=== PATIENT | female | born 1995 | race Two or more races ===

== ENCOUNTER 2016-09-14 22:19 | Emergency (ER) | payer SELFPAY ==
[~2016-09-14] VITALS: Ht 165.1 cm; Wt 93.0 kg
[2016-09-14 23:27] LABS: BASO % 0 % (0-3); EOS % 11 % (0-3); HEMATOCRIT 41.1 % (36.0-47.0); HEMOGLOBIN 13.4 g/dL (12.0-15.5); LYMPH # 3.5 x10^3/uL (1.0-4.8); LYMPH % 27 % (24-48); MEAN CORPUSCULAR HEMOGLOBIN 28 pg (25-35); MEAN CORPUSCULAR HGB CONC 33 g/dL (31-37); MEAN CORPUSCULAR VOLUME 86 fL (79-100); MONO % 6 % (0-9); NEUT % 56 % (31-73); PLATELET COUNT 280 x10^3/uL (140-400); RED BLOOD COUNT 4.79 x10^6/uL (3.50-5.40); RED CELL DISTRIBUTION WIDTH 13.1 % (11.5-14.5)
[2016-09-14 23:29] LABS: BILIRUBIN,URINE NEGATIVE (NEG); GLUCOSE,URINE NEGATIVE (NEG); NITRITE,URINE NEGATIVE (NEG); PH,URINE 5.5; PROTEIN,URINE NEGATIVE (NEG-TRACE)
[2016-09-14 23:40] LABS: BACTERIA,URINE FEW /HPF (0-FEW); SQUAMOUS EPITHELIAL CELL,UR MOD /LPF; WBC,URINE OCC /HPF (0-4)
[2016-09-14 23:43] LABS: CALCIUM 8.9 mg/dL (8.5-10.1); CREATININE 0.6 mg/dL (0.6-1.0); GFR 127.5; POTASSIUM 3.2 mmol/L (3.5-5.1)
[2016-09-14 23:48] LABS: ALBUMIN 3.7 g/dL (3.4-5.0); ALBUMIN/GLOBULIN RATIO 0.9 (1.0-1.7); TOTAL BILIRUBIN 0.2 mg/dL (0.2-1.0); TOTAL PROTEIN 7.6 g/dL (6.4-8.2)
[2016-09-15] MEDS ORDERED: POTASSIUM CHLORIDE 20 MEQ/15 ML ORAL LIQUID. PO ONE
[2016-09-15 00:10] VITALS: BP 124/71
[2016-09-15 00:17] LABS: % EOS 10 % (0-5); PLT ESTIMATE ADEQUATE (ADEQUATE)
--- NOTE | 2016-09-15 00:28 | PHYS DOC ---
Past Medical History Past Medical History: No Pertinent History Past Surgical History: No Surgical History Alcohol Use: None Drug Use: None Adult General Chief Complaint Chief Complaint: VAGINAL BLEEDING HPI HPI Patient is a 21 year old female who presents with prolonged menses. Patient reports vaginal bleeding 2 weeks. Denies history of irregular or prolonged menses in the past. Reports mild cramping lower abdominal pain. Reports using 3 pads today. Denies fevers or chills, nausea or vomiting, diarrhea or constipation, dysuria or hematuria, vaginal discharge. Reports she sometimes feels lightheaded. Denies any other abnormal bleeding. Patient speaks Chuukese , accompanied by who is serving as a fluent corporate webmaster. Review of Systems Review of Systems Constitutional: Denies fever or chills Eyes: Denies change in visual acuity HENT: Denies nasal congestion or sore throat Respiratory: Denies cough or shortness of breath Cardiovascular: Denies chest pain or edema GI: Her port's abdominal pain, denies nausea, vomiting, bloody stools or diarrhea : Port's vaginal bleeding Musculoskeletal: Denies back pain or joint pain Integument: Denies rash or skin lesions Neurologic: Denies headache, focal weakness or sensory changes Current Medications Current Medications Current Medications Medications (Trade) Dose Ordered Sig/Michael Start Time Stop Time Status Last Admin Dose Admin Potassium Chloride (KCl Oral Soln) 40 meq 1X ONCE 09/15/16 00:00 09/15/16 00:01 DC 09/15/16 00:27 40 MEQ Allergies Allergies Allergies Coded Allergies Type Severity Reaction Last Updated Verified No Known Drug Allergies 09/14/16 No Physical Exam Physical Exam Constitutional: Obese, no acute distress, non-toxic appearance. HENT: Normocephalic, atraumatic, bilateral external ears normal, oropharynx moist, nose normal. Eyes: conjunctiva normal, no discharge. Neck: supple, no stridor. Cardiovascular: RRR, no murmurs, no edema. Lungs & Thorax: LCTAB, no wheezing, no respiratory distress. Abdomen: soft, nontender, nondistended. No masses or pulsatile masses, no rebound or guarding : normal appearing female external genitalia, normal appearing cervix with closed os, small amount of blood in the vaginal vault, no CMT, right adnexal tenderness is present Skin: Warm, dry, no erythema, no rash. Back: No CVA tenderness. Extremities: No tenderness, no edema. Neurologic: Alert and oriented X 3, no focal deficits noted. Psychologic: Affect normal, judgement normal, mood normal. Current Patient Data Vital Signs Vital Signs Date Time Temp Pulse Resp B/P (MAP) Pulse Ox O2 Delivery O2 Flow Rate FiO2 09/15/16 00:10 69 16 124/71 (88) 100 Room Air 09/14/16 23:10 98.7 98.7 Lab Values Laboratory Tests Test 09/14/16 21:59 09/14/16 22:48 09/14/16 22:57 POC Urine HCG, Qualitative Hcg negative (Negative) Urine Collection Type Unknown Urine Color Yellow Urine Clarity Clear Urine pH 5.5 Urine Specific [place] 1.020 Urine Protein Negative mg/dL (NEG-TRACE) Urine Glucose (UA) Negative mg/dL (NEG) Urine Ketones (Stick) Negative mg/dL (NEG) Urine Blood Large (NEG) Urine Nitrite Negative (NEG) Urine Bilirubin Negative (NEG) Urine Urobilinogen Dipstick 1.0 mg/dL (0.2 mg/dL) Urine Leukocyte Esterase Negative (NEG) Urine RBC 6-10 /HPF (0-2) Urine WBC Occ /HPF (0-4) Urine Squamous Epithelial Cells Mod /LPF Urine Bacteria Few /HPF (0-FEW) Urine Mucus Marked /LPF White Blood Count 13.0 x10^3/uL (4.0-11.0) H Red Blood Count 4.79 x10^6/uL (3.50-5.40) Hemoglobin 13.4 g/dL (12.0-15.5) Hematocrit 41.1 % (36.0-47.0) Mean Corpuscular Volume 86 fL (79-100) Mean Corpuscular Hemoglobin 28 pg (25-35) Mean Corpuscular Hemoglobin Concent 33 g/dL (31-37) Red Cell Distribution Width 13.1 % (11.5-14.5) Platelet Count 280 x10^3/uL (140-400) Neutrophils (%) (Auto) 56 % (31-73) Lymphocytes (%) (Auto) 27 % (24-48) Monocytes (%) (Auto) 6 % (0-9) Eosinophils (%) (Auto) 11 % (0-3) H Basophils (%) (Auto) 0 % (0-3) Neutrophils # (Auto) 7.3 x10^3uL (1.8-7.7) Lymphocytes # (Auto) 3.5 x10^3/uL (1.0-4.8) Monocytes # (Auto) 0.7 x10^3/uL (0.0-1.1) Eosinophils # (Auto) 1.4 x10^3/uL (0.0-0.7) H Basophils # (Auto) 0.0 x10^3/uL (0.0-0.2) Segmented Neutrophils % 50 % (35-66) Band Neutrophils % 2 % (0-9) Lymphocytes % 35 % (24-48) Monocytes % 3 % (0-10) Eosinophils % 10 % (0-5) H Platelet Estimate Adequate (ADEQUATE) Giant Platelets Occ Sodium Level 139 mmol/L (136-145) Potassium Level 3.2 mmol/L (3.5-5.1) L Chloride Level 103 mmol/L (98-107) Carbon Dioxide Level 27 mmol/L (21-32) Anion Gap 9 (6-14) Blood Urea Nitrogen 8 mg/dL (7-20) Creatinine 0.6 mg/dL (0.6-1.0) Estimated GFR (Cockcroft-Gault) 127.5 BUN/Creatinine Ratio 13 (6-20) Glucose Level 108 mg/dL (70-99) H Calcium Level 8.9 mg/dL (8.5-10.1) Total Bilirubin 0.2 mg/dL (0.2-1.0) Aspartate Amino Transferase (AST) 26 U/L (15-37) Alanine Aminotransferase (ALT) 40 U/L (14-59) Alkaline Phosphatase 125 U/L (46-116) H Total Protein 7.6 g/dL (6.4-8.2) Albumin 3.7 g/dL (3.4-5.0) Albumin/Globulin Ratio 0.9 (1.0-1.7) L Laboratory Tests 09/14/16 22:57 Laboratory Tests 09/14/16 22:57 Microbiology 09/14/16 Wet Prep - Final, Complete EKG EKG [] Radiology/Procedures Radiology/Procedures PROCEDURE: PELVIS W/TV Pelvic ultrasound HISTORY: Right adnexal tenderness, vaginal bleeding. TECHNIQUE: Transabdominal and transvaginal transducers with grayscale and duplex Doppler sonography were utilized. FINDINGS: Transabdominal imaging demonstrates anteverted uterus measuring 6.8 x 3.4 x 5.6 cm. Endometrial thickness 8 mm. No pelvic fluid documented. Ovaries not visualized transabdominal. Transvaginal imaging demonstrates anteverted uterus although the majority the uterus is obscured by bowel gas shadowing. Endometrial thickness 14 mm. Shadowing from bowel gas limits visualization of segments of the ovaries, right ovary measured as 1.9 x 2.4 x 1.7 cm, left ovary measures 3.8 x 2.5 x 2.1 cm demonstrates a left ovarian 3.3 centrilobular oblong unilocular anechoic cystic lesion. There is intact bilateral ovarian blood flow with normal waveforms. No pelvic fluid. Small right ovarian follicles are present. IMPRESSION: Left ovarian 3.8 cm unilocular anechoic simple cystic structure typical of a dominant follicle. Otherwise unremarkable exam. Electronically signed by: Priscila Busch MD (09/15/2016 1:09 AM) [facility] DICTATED and SIGNED BY: PRISCILA BUSCH MD DATE: 09/15/16 010[] Course & Med Decision Making Course & Med Decision Making Pertinent Labs and Imaging studies reviewed. (See chart for details) The patient presents with menorrhagia. Vitals are stable here, not tachycardic or hypotensive. Hemoglobin is stable. Minimal bleeding seen on exam. Ultrasound performed due to adnexal tenderness. Recommend follow-up with Dr. Tobias in the gynecology clinic for further management. Okay to take ibuprofen as needed for cramping pain. Return to the emergency department for high fever, severe pain, uncontrolled vomiting, heavy bleeding requiring greater than 1 pad per hour, any otherwise worsening condition. Discharged home in stable condition. [] Dragon Disclaimer Dragon Disclaimer This electronic medical record was generated, in whole or in part, using a voice recognition dictation system. Departure Departure Impression: Primary Impression: Menorrhagia Additional Impression: Pelvic pain Disposition: 01 HOME, SELF-CARE Condition: STABLE Referrals: NO PCP (PCP) MOOKIE TOBIAS Jr, MD Patient Instructions: Menorrhagia, [id number] Additional Instructions: You were seen in the emergency department today for vaginal bleeding. Your vital signs are stable in your blood count is normal. Please follow-up with Dr. Tobias in the gynecology clinic in 2-3 days for further management. Okay to take ibuprofen as needed for cramping pain. Return to the emergency department for high fever, severe pain, uncontrolled vomiting, heavy bleeding requiring greater than 1 pad per hour, any otherwise worsening condition. Problem Qualifiers ALCON BATISTA MD Sep 15, 2016 00:28
--- NOTE | 2016-09-15 01:12 | RAD ---
Pelvic ultrasound HISTORY: Right adnexal tenderness, vaginal bleeding. TECHNIQUE: Transabdominal and transvaginal transducers with grayscale and duplex Doppler sonography were utilized. FINDINGS: Transabdominal imaging demonstrates anteverted uterus measuring 6.8 x 3.4 x 5.6 cm. Endometrial thickness 8 mm. No pelvic fluid documented. Ovaries not visualized transabdominal. Transvaginal imaging demonstrates anteverted uterus although the majority the uterus is obscured by bowel gas shadowing. Endometrial thickness 14 mm. Shadowing from bowel gas limits visualization of segments of the ovaries, right ovary measured as 1.9 x 2.4 x 1.7 cm, left ovary measures 3.8 x 2.5 x 2.1 cm demonstrates a left ovarian 3.3 centrilobular oblong unilocular anechoic cystic lesion. There is intact bilateral ovarian blood flow with normal waveforms. No pelvic fluid. Small right ovarian follicles are present. IMPRESSION: Left ovarian 3.8 cm unilocular anechoic simple cystic structure typical of a dominant follicle. Otherwise unremarkable exam. Electronically signed by: Lan Busch MD (09/15/2016 1:09 AM) [facility]
== END 2016-09-15 01:32 | disposition home or self-care (01) ==
LOC: ER 22:19
DX: N92.0 Excessive and frequent menstruation with regular cycle (principal); R10.2 Pelvic and perineal pain
CPT/HCPCS: 36415; 76830; 76856; 80053; 81001; 81025; 85007; 85027; 87491; 87591; 99285; Q0111

== ENCOUNTER 2016-09-30 08:01 | Emergency (ER) | payer SELFPAY ==
[~2016-09-30] VITALS: Ht 165.1 cm; Wt 93.0 kg
--- NOTE | 2016-09-30 08:17 | PHYS DOC ---
Past Medical History Past Medical History: No Pertinent History Past Surgical History: No Surgical History Alcohol Use: None Drug Use: None Adult General Chief Complaint Chief Complaint: CHEST PAIN HPI HPI Patient is a 21 year old female who presents with chest pain. Patient presents with her who is interpreting for me. Patient developed chest pain that is sharp in nature, is substernal and left chest, worsens with deep inspiration and improves that she ask else. No known trauma or cough, no fevers. She has had symptoms in the past but does not recall what the cause was. She denies any early heart disease in her family, no history of PE or DVT, does not take any control pills. She has no other risk factors for PE, no recent surgeries, no prolonged immobilization. No pain or swelling in her legs reported. Patient has not attempted any symptom controlling medications. LMP was the first of last month. Review of Systems Review of Systems Constitutional: Denies fever or chills [] Eyes: Denies eye pain [] HENT: Denies nasal congestion or sore throat [] Respiratory: Denies cough or shortness of breath [] Cardiovascular: Reports chest pain GI: Denies abdominal pain, nausea, vomiting, or change in stools : Denies dysuria or hematuria [] Musculoskeletal: Denies back pain Integument: Denies rash Neurologic: Denies headache, focal weakness or sensory changes [] Current Medications Current Medications Current Medications Medications (Trade) Dose Ordered Sig/Michael Start Time Stop Time Status Last Admin Dose Admin Ibuprofen (Motrin) 800 mg 1X ONCE 09/30/16 08:30 09/30/16 08:31 DC 09/30/16 08:27 800 MG Morphine Sulfate 4 mg 1X ONCE 09/30/16 09:15 09/30/16 09:19 DC 09/30/16 09:30 4 MG Allergies Allergies Allergies Coded Allergies Type Severity Reaction Last Updated Verified No Known Drug Allergies 09/14/16 No Physical Exam Physical Exam Constitutional: Well developed, well nourished, no acute distress, non-toxic appearance. [] HENT: Normocephalic, atraumatic, bilateral external ears normal, oropharynx moist, no oral exudates, nose normal. [] Eyes: PERRLA, EOMI, conjunctiva normal, no discharge. [] Neck: Normal range of motion, no tenderness, supple, no stridor. [] Cardiovascular:Heart rate regular rhythm, no murmur [] Lungs & Thorax: Bilateral breath sounds clear to auscultation [] Abdomen: Bowel sounds normal, soft, no tenderness, no masses, no pulsatile masses. [] Skin: Warm, dry, no erythema, no rash. [] Back: No tenderness, no CVA tenderness. [] Extremities: No tenderness, no cyanosis, no clubbing, ROM intact, no edema. [] Neurologic: Alert and oriented X 3, normal motor function, normal sensory function, no focal deficits noted. [] Psychologic: Affect normal, judgement normal, mood normal. [] Current Patient Data Vital Signs Vital Signs Date Time Temp Pulse Resp B/P (MAP) Pulse Ox O2 Delivery O2 Flow Rate FiO2 09/30/16 09:46 58 19 108/66 (80) 99 Room Air 09/30/16 08:08 98.0 98.0 Lab Values Laboratory Tests Test 09/30/16 07:22 09/30/16 08:46 09/30/16 08:50 POC Urine HCG, Qualitative Hcg negative (Negative) White Blood Count 8.8 x10^3/uL (4.0-11.0) Red Blood Count 4.80 x10^6/uL (3.50-5.40) Hemoglobin 13.4 g/dL (12.0-15.5) Hematocrit 40.7 % (36.0-47.0) Mean Corpuscular Volume 85 fL (79-100) Mean Corpuscular Hemoglobin 28 pg (25-35) Mean Corpuscular Hemoglobin Concent 33 g/dL (31-37) Red Cell Distribution Width 12.6 % (11.5-14.5) Platelet Count 271 x10^3/uL (140-400) Neutrophils (%) (Auto) 43 % (31-73) Lymphocytes (%) (Auto) 32 % (24-48) Monocytes (%) (Auto) 9 % (0-9) Eosinophils (%) (Auto) 16 % (0-3) H Basophils (%) (Auto) 1 % (0-3) Neutrophils # (Auto) 3.8 x10^3uL (1.8-7.7) Lymphocytes # (Auto) 2.8 x10^3/uL (1.0-4.8) Monocytes # (Auto) 0.8 x10^3/uL (0.0-1.1) Eosinophils # (Auto) 1.4 x10^3/uL (0.0-0.7) H Basophils # (Auto) 0.0 x10^3/uL (0.0-0.2) Segmented Neutrophils % 37 % (35-66) Band Neutrophils % 4 % (0-9) Lymphocytes % 40 % (24-48) Monocytes % 3 % (0-10) Eosinophils % 16 % (0-5) H Platelet Estimate Adequate (ADEQUATE) D-Dimer (Maricruz) 0.38 ug/mlFEU (0.00-0.50) POC Hemoglobin 14.3 g/dL (12-15) POC Hematocrit 42 % (36-40) H POC Sodium 139 mmol/L (135-145) POC Potassium 3.7 mmol/L (3.5-5.0) POC Chloride 102 mmol/L (98-110) POC Total CO2 24 mmol/L (23-32) Anion Gap 18 mmol/L (6-14) H POC Blood Urea Nitrogen 10 mg/dL (8-26) POC Creatinine 0.5 mg/dL (0.5-1.4) Glucose Level 94 mg/dL (70-99) POC Ionized Calcium (Sung) 1.22 mmol/L (1.13-1.32) Laboratory Tests 09/30/16 08:46 Laboratory Tests 09/30/16 08:50 EKG EKG 60 bpm, sinus, normal axis, normal intervals, no ST elevation or depression, nonischemic T waves, interpreted by me [] Radiology/Procedures Radiology/Procedures CXR: Impression: No acute cardiopulmonary process. Course & Med Decision Making Course & Med Decision Making Pertinent Labs and Imaging studies reviewed. (See chart for details) She was given ibuprofen by mouth for her pain as chest x-ray, EKG and lab work obtained. No acute findings on ED workup. Patient states her pain did not improve. She was given IM morphine and a d-dimer added. Morphine resolved her pain, d-dimer negative. Counseled patient on follow-up with primary care physician, resource list given. Ibuprofen prescription and return percussions given. Dragon Disclaimer Dragon Disclaimer This electronic medical record was generated, in whole or in part, using a voice recognition dictation system. Departure Departure Impression: Primary Impression: Chest pain of uncertain etiology Disposition: HOME, SELF-CARE Condition: STABLE Referrals: NO PCP (PCP) Scripts Ibuprofen (IBUPROFEN) 800 Mg Tablet 800 MG PO PRN TID Y for PAIN, #20 TAB take with food or milk to avoid upsetting stomach Prov: SANDHYA ARROYO MD 09/30/16 SANDHYA ARROYO MD Sep 30, 2016 08:17
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
[2016-09-30] MEDS ORDERED: IBUPROFEN 800 MG TABLET. PO ONE (08:30)
[2016-09-30 08:53] LABS: POTASSIUM ISTAT 3.7 mmol/L (3.5-5.0)
[2016-09-30 08:53] LABS: BASO % 1 % (0-3); EOS % 16 % (0-3); HEMATOCRIT 40.7 % (36.0-47.0); HEMOGLOBIN 13.4 g/dL (12.0-15.5); LYMPH # 2.8 x10^3/uL (1.0-4.8); LYMPH % 32 % (24-48); MEAN CORPUSCULAR HEMOGLOBIN 28 pg (25-35); MEAN CORPUSCULAR HGB CONC 33 g/dL (31-37); MEAN CORPUSCULAR VOLUME 85 fL (79-100); MONO % 9 % (0-9); NEUT % 43 % (31-73); PLATELET COUNT 271 x10^3/uL (140-400); RED CELL DISTRIBUTION WIDTH 12.6 % (11.5-14.5); WHITE BLOOD COUNT 8.8 x10^3/uL (4.0-11.0)
--- NOTE | 2016-09-30 08:56 | RAD ---
Chest radiograph 09/30/2016 at 0829 hours Indication: Chest pain with inspiration Comparison: None available Technique: PA and lateral views of the chest are provided. Findings: Cardiomediastinal silhouette is within normal limits. No pleural effusions, pulmonary vascular congestion or pneumothorax. Few scattered calcified granulomas are present. The lungs are clear. Osseous structures are normal. Impression: No acute cardiopulmonary process.
[2016-09-30] MEDS ORDERED: MORPHINE SULFATE 4 MG/ML DISP.SYRIN. IM ONE (09:15)
[2016-09-30 09:46] VITALS: BP 108/66
[2016-09-30 10:16] LABS: % EOS 16 % (0-5); PLT ESTIMATE ADEQUATE (ADEQUATE)
[2016-09-30] MEDS ORDERED: IBUP-1060 PO (10:43)
== END 2016-09-30 10:56 | disposition home or self-care (01) ==
LOC: ER 08:01
DX: R07.2 Precordial pain (principal)
CPT/HCPCS: 36415; 71020; 80047; 81025; 85007; 85025; 85379; 93005; 96372; 99285; J2270

== ENCOUNTER 2017-02-20 11:52 | Emergency (ER) | payer SELFPAY ==
[2017-02-20 12:36] LABS: URINE HCG POC HCG NEGATIVE (Negative)
[2017-02-20 13:38] LABS: INFLUENZA A PATIENT NEGATIVE (NEGATIVE); INFLUENZA B PATIENT POSITIVE (NEGATIVE)
[2017-02-20 13:39] LABS: OBC FLU VALID
[2017-02-20] MEDS: IBUPROFEN 800 MG TABLET. PO (13:54)
== END 2017-02-20 13:55 | disposition home or self-care (01) ==
LOC: ER 11:52
DX: J11.1 Influenza due to unidentified influenza virus with other respiratory manifestations (principal)
CPT/HCPCS: 81025; 87804; 87804-59; 99284

== ENCOUNTER 2017-02-21 13:34 | Emergency (ER) | payer SELFPAY ==
[2017-02-21 13:55] LABS: URINE HCG POC HCG NEGATIVE (Negative)
[2017-02-21 14:14] LABS: ADD MAN DIFF? NO
[2017-02-21 14:21] LABS: BASO # 0.1 x10^3/uL (0.0-0.2); BASO % 1 % (0-3); EOS # 1.4 x10^3/uL (0.0-0.7); EOS % 14 % (0-3); HEMATOCRIT 40.4 % (36.0-47.0); HEMOGLOBIN 13.1 g/dL (12.0-15.5); LYMPH # 2.7 x10^3/uL (1.0-4.8); LYMPH % 28 % (24-48); MEAN CORPUSCULAR HEMOGLOBIN 28 pg (25-35); MEAN CORPUSCULAR HGB CONC 32 g/dL (31-37); MEAN CORPUSCULAR VOLUME 86 fL (79-100); MONO # 0.6 x10^3/uL (0.0-1.1); MONO % 7 % (0-9); NEUT # 4.9 x10^3uL (1.8-7.7); NEUT % 51 % (31-73); PLATELET COUNT 298 x10^3/uL (140-400); RED CELL DISTRIBUTION WIDTH 13.1 % (11.5-14.5); WHITE BLOOD COUNT 9.7 x10^3/uL (4.0-11.0)
[2017-02-21] MEDS: IV NORMAL SALINE 1000ML BAG 1,000 ML IV (14:23)
[2017-02-21 14:26] LABS: BILIRUBIN,URINE NEGATIVE (NEG); CLARITY,URINE CLEAR; COLOR,URINE YELLOW; GLUCOSE,URINE NEGATIVE (NEG); NITRITE,URINE NEGATIVE (NEG); PH,URINE 5.5; PROTEIN,URINE NEGATIVE (NEG-TRACE)
[2017-02-21 14:31] LABS: INR 1.1 (0.8-1.1); PROTHROMBIN TIME PATIENT 13.3 SEC (11.7-14.0)
[2017-02-21 14:34] LABS: BACTERIA,URINE FEW /HPF (0-FEW); D-DIMER 0.38 ug/mlFEU (0.00-0.50); RBC,URINE OCC /HPF (0-2); SQUAMOUS EPITHELIAL CELL,UR MOD /LPF; WBC,URINE 0 /HPF (0-4)
[2017-02-21 14:47] LABS: ANION GAP 11 (6-14); BLOOD UREA NITROGEN 9 mg/dL (7-20); CALCIUM 8.7 mg/dL (8.5-10.1); CARBON DIOXIDE 26 mmol/L (21-32); CHLORIDE 104 mmol/L (98-107); CREATININE 0.6 mg/dL (0.6-1.0); GFR 126.2; GLUCOSE 103 mg/dL (70-99); POTASSIUM 3.7 mmol/L (3.5-5.1); SODIUM 141 mmol/L (136-145)
[2017-02-21 14:52] LABS: ALBUMIN 3.8 g/dL (3.4-5.0); ALK PHOS 128 U/L (46-116); ALT (SGPT) 26 U/L (14-59); AST (SGOT) 19 U/L (15-37); DIRECT BILIRUBIN 0.1 mg/dL (0.0-0.2); LIPASE 152 U/L (73-393); MAGNESIUM 1.8 mg/dL (1.8-2.4); TOTAL BILIRUBIN 0.4 mg/dL (0.2-1.0); TOTAL PROTEIN 7.7 g/dL (6.4-8.2)
[2017-02-21 14:56] LABS: TROPONINI < 0.017 ng/mL (0.000-0.055)
[2017-02-21 15:01] LABS: NT-PRO BNP 10 pg/mL (0-124)
[2017-02-21 15:01] LABS: CREATINE KINASE 74 U/L (26-192)
[2017-02-21 15:03] LABS: CKMB MASS < 0.5 ng/mL (0.0-3.6)
== END 2017-02-21 15:36 | disposition home or self-care (01) ==
LOC: ER 13:34
DX: J11.1 Influenza due to unidentified influenza virus with other respiratory manifestations (principal)
CPT/HCPCS: 36415; 71046; 80048; 80076; 81001; 81025; 82553; 83690; 83735; 83880; 84484; 85025; 85379; 85610; 93005; 96360; 99285-25; J7030

== ENCOUNTER 2017-03-23 23:42 | Emergency (ER) | payer SELFPAY | END 2017-03-24 00:39 | disposition home or self-care (01) | LOC: ER 03-24 00:39 | DX: J20.9 Acute bronchitis, unspecified (principal) | CPT/HCPCS: 99283 ==

== ENCOUNTER 2017-05-11 21:28 | Emergency (ER) | payer SELFPAY | END 2017-05-11 22:36 | disposition home or self-care (01) | LOC: ER 21:28 | DX: R21 Rash and other nonspecific skin eruption (principal) | CPT/HCPCS: 99283 ==

== ENCOUNTER 2017-06-27 01:12 | Emergency (ER) | payer SELFPAY ==
[2017-06-27] MEDS ORDERED: predniSONE 10 MG TABLET PO (02:30)
[2017-06-27] MEDS: ALBUTEROL SULFATE 2.5 MG/3 ML NEBU. NEB (02:30)
[2017-06-27] MEDS: AZITHROMYCIN 250 MG TABLET. PO (02:47)
[2017-06-27] MEDS: predniSONE 20 MG TABLET PO (02:47)
== END 2017-06-27 03:03 | disposition home or self-care (01) ==
LOC: ER 01:12
DX: R06.2 Wheezing (principal); R06.02 Shortness of breath; R06.00 Dyspnea, unspecified; R05 Cough
CPT/HCPCS: 94640; 99283; J7512; J7613; Q0144

== ENCOUNTER 2017-07-23 09:21 | Emergency (ER) | payer SELFPAY ==
[2017-07-23] MEDS: IPRATRPIUM/ALBUTEROL 0.5/2.5MG 3 ML NEBU. NEB (09:59)
[2017-07-23] MEDS: predniSONE 10 MG TABLET PO (10:11)
[2017-07-23] MEDS: ALBUTEROL SULFATE 2.5 MG/3 ML NEBU. NEB (10:55)
== END 2017-07-23 11:13 | disposition home or self-care (01) ==
LOC: ER 09:21
DX: J45.909 Unspecified asthma, uncomplicated (principal)
CPT/HCPCS: 94640; 99284; J7512; J7613; J7620

== ENCOUNTER 2017-11-15 01:34 | Emergency (ER) | payer SELFPAY ==
[~2017-11-15] VITALS: Ht 162.6 cm; Wt 90.7 kg
[~2017-11-15 01:34] MED LIST: AMOX1TAB61 PO; AZIT250T6 PO; CLOT15CR5 TP; IBUP-1060 PO; ONDA4TAB10 SL; PRED50TA PO; PROAIR HFA8.5 GM INH; PROVENTIL HFA6.7 GM IH
[2017-11-15 01:50] VITALS: BP 151/84
[2017-11-15] MEDS ORDERED: PENI500T PO (02:24)
[2017-11-15] MEDS ORDERED: HYDR-963 PO (02:24)
[2017-11-15] MEDS ORDERED: oxyCODONE/APAP 10/325 1 TAB TABLET PO ONE (03:00)
[2017-11-15] MEDS ORDERED: PENICILLIN V K 250 MG TABLET. PO ONE (03:00)
--- NOTE | 2017-11-15 05:50 | PHYS DOC ---
Past Medical History Past Medical History: No Pertinent History Past Surgical History: No Surgical History Alcohol Use: None Drug Use: None Adult General Chief Complaint Chief Complaint: DENTAL PROBLEM HPI HPI Patient is a 22 year old female presents with left upper premolar pain past 2 weeks. Patient with upper Left upper abdominal tenderness. No soft tissue gingival abscess. No other acute symptoms or complaints. Patient is not been evaluated for symptoms by a dentist prior to today's ED visit.[] Review of Systems Review of Systems ROS as per HPI [] All other systems were reviewed and found to be within normal limits, except as documented in this note. Current Medications Current Medications Current Medications Medications (Trade) Dose Ordered Sig/Michael Start Time Stop Time Status Last Admin Dose Admin Oxycodone/ Acetaminophen (Percocet 10/325) 1 tab 1X ONCE 11/15/17 03:00 11/15/17 03:00 DC 11/15/17 02:47 1 TAB Penicillin V Potassium (Veetid) 500 mg 1X ONCE 11/15/17 03:00 11/15/17 03:00 DC 11/15/17 02:47 500 MG Allergies Allergies Allergies Coded Allergies Type Severity Reaction Last Updated Verified No Known Drug Allergies 09/14/16 No c Physical Exam Physical Exam Constitutional: Well developed, well nourished, no acute distress, non-toxic appearance. [] HENT: Normocephalic, atraumatic, bilateral external ears normal, oropharynx moist, left upper pain, nose normal. [] Eyes: PERRLA, EOMI, conjunctiva normal. [] Current Patient Data Vital Signs Vital Signs Date Time Temp Pulse Resp B/P (MAP) Pulse Ox O2 Delivery O2 Flow Rate FiO2 11/15/17 01:50 98.5 83 18 151/84 (106) 99 Room Air 98.5 EKG EKG [] Radiology/Procedures Radiology/Procedures [] Course & Med Decision Making Course & Med Decision Making Pertinent Labs and Imaging studies reviewed. (See chart for details) [No dysphagia, drooling or trismus. Patient recommended follow-up with dentist of choice JOHAN. Return cautions reviewed.] Dragon Disclaimer Dragon Disclaimer This electronic medical record was generated, in whole or in part, using a voice recognition dictation system. Departure Departure Impression: Primary Impression: Pain due to dental caries Disposition: HOME, SELF-CARE Condition: GOOD Patient Instructions: Dental Caries, Dental Pain, Cgot-va-Jlen Scripts Penicillin V Potassium (PENICILLIN V POTASSIUM) 500 Mg Tablet 500 MG PO QID for 10 Days, #40 TAB 0 Refills Prov: AVINASH EDMONDSON DO 11/15/17 Hydrocodone/Apap 10-325 (NORCO 10-325 TABLET) 1 Each Tablet 1 TAB PO Q8HRS PRN for PAIN MDD 6, #10 TAB 0 Refills Prov: AVINASH EDMONDSON DO 11/15/17 AVINASH EDMONDSON DO Nov 15, 2017 05:50
== END 2017-11-15 02:51 | disposition home or self-care (01) ==
LOC: ER 01:34
DX: K02.9 Dental caries, unspecified (principal); R10.12 Left upper quadrant pain
CPT/HCPCS: 99283

== ENCOUNTER 2018-01-02 18:30 | Emergency (ER) | payer SELFPAY ==
[~2018-01-02] VITALS: Ht 162.6 cm; Wt 90.7 kg
[~2018-01-02 18:30] MED LIST changes: +HYDR-3135 PO; +PENI500T PO
[2018-01-02 19:00] VITALS: BP 132/75
[2018-01-02] MEDS ORDERED: BUPIVAC MPF-EPI 0.5%-1:200000 30 ML VIAL. INJ ONE (19:30)
[2018-01-02] MEDS ORDERED: AMOXICILLIN/K CLAV 875/125MG TABLET. PO ONE (19:30)
[2018-01-02] MEDS ORDERED: DEXAMETHASONE 4 MG TABLET PO ONE (19:30)
[2018-01-02] MEDS ORDERED: AMOX1TAB61 PO (19:33)
[2018-01-02] MEDS ORDERED: PRED20TA PO (19:33)
[2018-01-02] MEDS ORDERED: CHLO15MO2 PO (19:33)
--- NOTE | 2018-01-02 19:34 | PHYS DOC ---
Past Medical History Past Medical History: No Pertinent History Past Surgical History: No Surgical History Alcohol Use: None Drug Use: None Adult General Chief Complaint Chief Complaint: DENTAL PROBLEM HPI HPI Patient is a 22 year old [f__sex] who presents with [] Review of Systems Review of Systems Constitutional: Denies fever or chills [] Eyes: Denies change in visual acuity, redness, or eye pain [] HENT: Denies nasal congestion or sore throat [] Respiratory: Denies cough or shortness of breath [] Cardiovascular: No additional information not addressed in HPI [] GI: Denies abdominal pain, nausea, vomiting, bloody stools or diarrhea [] : Denies dysuria or hematuria [] Musculoskeletal: Denies back pain or joint pain [] Integument: Denies rash or skin lesions [] Neurologic: Denies headache, focal weakness or sensory changes [] Endocrine: Denies polyuria or polydipsia [] All other systems were reviewed and found to be within normal limits, except as documented in this note. Allergies Allergies Allergies Coded Allergies Type Severity Reaction Last Updated Verified No Known Drug Allergies 09/14/16 No Physical Exam Physical Exam Constitutional: Well developed, well nourished, no acute distress, non-toxic appearance. [] HENT: Normocephalic, atraumatic, bilateral external ears normal, oropharynx moist, no oral exudates, nose normal. [] Eyes: PERRLA, EOMI, conjunctiva normal, no discharge. [] Neck: Normal range of motion, no tenderness, supple, no stridor. [] Cardiovascular:Heart rate regular rhythm, no murmur [] Lungs & Thorax: Bilateral breath sounds clear to auscultation [] Abdomen: Bowel sounds normal, soft, no tenderness, no masses, no pulsatile masses. [] Skin: Warm, dry, no erythema, no rash. [] Back: No tenderness, no CVA tenderness. [] Extremities: No tenderness, no cyanosis, no clubbing, ROM intact, no edema. [] Neurologic: Alert and oriented X 3, normal motor function, normal sensory function, no focal deficits noted. [] Psychologic: Affect normal, judgement normal, mood normal. [] EKG EKG [] Radiology/Procedures Radiology/Procedures [] Course & Med Decision Making Course & Med Decision Making Pertinent Labs and Imaging studies reviewed. (See chart for details) [] Dragon Disclaimer Dragon Disclaimer This electronic medical record was generated, in whole or in part, using a voice recognition dictation system. Departure Departure Impression: Primary Impression: Dentalgia Additional Impression: Dental caries Condition: STABLE Referrals: NO PCP (PCP) Patient Instructions: Dental Caries Scripts Amoxicillin/Potassium Clav (AUGMENTIN 875-125 TABLET) 1 Each Tablet 1 TAB PO BID, #14 TAB Prov: ALEJANDRO PAULINO DO 01/02/18 Chlorhexidine Gluconate (PERIDEX) 15 Ml Mouthwash 15 ML PO BID, #946 ML Prov: ALEJANDRO PAULINO DO 01/02/18 Prednisone (PREDNISONE) 20 Mg Tablet 2 TAB PO DAILY, #8 TAB Prov: ALEJANDRO PAULINO DO 01/02/18 Problem Qualifiers ALEJANDRO PAULINO DO Jan 02, 2018 19:33
== END 2018-01-02 20:55 | disposition home or self-care (01) ==
LOC: ER 18:30
DX: K02.9 Dental caries, unspecified (principal)
CPT/HCPCS: 96372; 99283; J3490; J8540

== ENCOUNTER 2018-01-20 20:41 | Emergency (ER) | payer SELFPAY ==
[~2018-01-20] VITALS: Ht 160 cm; Wt 86.2 kg
[~2018-01-20 20:41] MED LIST changes: +CHLO15MO2 PO; +PRED20TA PO
[2018-01-20 20:42] VITALS: BP 122/80
[2018-01-20] MEDS ORDERED: HYDROcodone/APAP 5/325MG 1 TAB TABLET PO ONE (22:00)
--- NOTE | 2018-01-20 22:15 | PHYS DOC ---
Past Medical History Past Medical History: No Pertinent History Past Surgical History: No Surgical History Alcohol Use: None Drug Use: None Adult General Chief Complaint Chief Complaint: SKIN RASH/ABSCESS HPI HPI Patient is a 22 year old female who presents with pressure left breast nipple for 3 months. She denies fevers. States her pain is a 10 out of 10. She is no known drug allergies. She has known past history states she takes no medications daily and is not currently breast-feeding. Review of Systems Review of Systems Constitutional: Denies fever or chills [] Eyes: Denies change in visual acuity, redness, or eye pain [] HENT: Denies nasal congestion or sore throat [] Respiratory: Denies cough or shortness of breath [] Cardiovascular: No additional information not addressed in HPI [] GI: Denies abdominal pain, nausea, vomiting, bloody stools or diarrhea [] : Denies dysuria or hematuria [] Musculoskeletal: Denies back pain or joint pain [] Integument: Left nipple excoriation and drainage. Denies rash or skin lesions [] Neurologic: Denies headache, focal weakness or sensory changes [] All other systems were reviewed and found to be within normal limits, except as documented in this note. Current Medications Current Medications Current Medications Medications (Trade) Dose Ordered Sig/Michael Start Time Stop Time Status Last Admin Dose Admin Acetaminophen/ Hydrocodone Bitart (Lortab 5/325) 1 tab 1X ONCE 01/20/18 22:00 01/20/18 22:01 DC 01/20/18 21:48 1 TAB Allergies Allergies Allergies Coded Allergies Type Severity Reaction Last Updated Verified No Known Drug Allergies 09/14/16 No Physical Exam Physical Exam Constitutional: Well developed, well nourished, no acute distress, non-toxic appearance. [] HENT: Normocephalic, atraumatic, bilateral external ears normal, oropharynx moist, no oral exudates, nose normal. [] Eyes: PERRLA, EOMI, conjunctiva normal, no discharge. [] Neck: Normal range of motion, no tenderness, supple, no stridor. [] Cardiovascular:Heart rate regular rhythm, no murmur [] Lungs & Thorax: Bilateral breath sounds clear to auscultation [] Abdomen: Bowel sounds normal, soft, no tenderness, no masses, no pulsatile masses. [] Skin: Warm, dry, Left breast nipple erythema and excoriation with bloody purulent drainage, no rash. [] Back: No tenderness, no CVA tenderness. [] Extremities: No tenderness, no cyanosis, no clubbing, ROM intact, no edema. [] Neurologic: Alert and oriented X 3, normal motor function, normal sensory function, no focal deficits noted. [] Psychologic: Affect normal, judgement normal, mood normal. [] Current Patient Data Vital Signs Vital Signs Date Time Temp Pulse Resp B/P (MAP) Pulse Ox O2 Delivery O2 Flow Rate FiO2 01/20/18 20:42 98.1 88 20 122/80 (94) 98 Room Air 98.1 EKG EKG [] Radiology/Procedures Radiology/Procedures US BREAST Impressions: [facility] [address] [place], [place] [id number] IMAGING REPORT Signed PATIENT: ELIZABETH CALL ACCOUNT: [id number] : 1995 LOCATION: ER AGE: 22 SEX: F EXAM STATUS: REG ER ORD. PHYSICIAN: AMARI BABCOCK APRN REASON: NIPPLE EXCORIATION PROCEDURE: BREAST LEFT Indication: Left nipple excoriation for 3 months. Patient was given steroid cream with no relief. TECHNIQUE: Grayscale and color Doppler images of the left breast COMPARISON: None FINDINGS: The skin is significantly thickened measuring 6 mm. There is an anechoic septated well-circumscribed lesion in the subareolar soft tissue measuring 1.3 x 1.5 x 0.8 cm without internal vascularity. Hyperemia is seen through the cutaneous soft tissue. Diffuse breast soft tissue edema noted. Multiple dilated intramammary ducts are seen. IMPRESSION: 1. Left breast cellulitis. Follow-up ultrasound recommended after medical therapy to ensure resolution as inflammatory type breast cancer can present similarly. 2. Subareolar minimally complex cyst. BI-RADS 3. Probably benign. Electronically signed by: Brennen Dacosta DO (01/20/2018 10:51 PM) [facility] DICTATED and SIGNED BY: BRENNEN DACOSTA DO DATE: 01/20/18 5455 Course & Med Decision Making Course & Med Decision Making Patient is a 22 year old female who presents with pressure left breast nipple for 3 months. She denies fevers. States her pain is a 10 out of 10. She is no known drug allergies. She has known past history states she takes no medications daily and is not currently breast-feeding. Left nipple is excoriated and has bloody purulent discharge. The rest of the breast is not effected is normal color for race. Area is tender with palpation. I did not feeling masses. Afebrile. US of Breast shows 1. Left breast cellulitis. Follow-up ultrasound recommended after medical therapy to ensure resolution as inflammatory type breast cancer can present similarly. 2. Subareolar minimally complex cyst. BI-RADS 3. Probably benign. Patient will be treated with Bactrim and will need to follow up after antibiotic is completed. I will refer her to Gynecology. Danyel Disclaimer Danyel Disclaimer This electronic medical record was generated, in whole or in part, using a voice recognition dictation system. Departure Departure Impression: Primary Impression: Cellulitis of breast Disposition: HOME, SELF-CARE Condition: STABLE Referrals: NO PCP (PCP) RAQUEL ARROYO MD Patient Instructions: Cellulitis Additional Instructions: Follow up with Gynecology after you are done taking your antibiotics. Take medication as prescribed. Scripts Hydrocodone/Apap 5-325 (NORCO 5-325 TABLET) 1 Each Tablet 1 TAB PO PRN Q6HRS PRN for PAIN, #15 TAB 0 Refills Prov: AMARI BABCOCK APRN 01/20/18 Sulfamethoxazole/Trimethoprim (BACTRIM DS TABLET) 1 Each Tablet 1 TAB PO BID, #20 TAB Prov: AMARI BABCOCK APRN 01/20/18 AMARI BABCOCK APRN Jan 20, 2018 22:15
--- NOTE | 2018-01-20 22:55 | RAD ---
Indication: Left nipple excoriation for 3 months. Patient was given steroid cream with no relief. TECHNIQUE: Grayscale and color Doppler images of the left breast COMPARISON: None FINDINGS: The skin is significantly thickened measuring 6 mm. There is an anechoic septated well-circumscribed lesion in the subareolar soft tissue measuring 1.3 x 1.5 x 0.8 cm without internal vascularity. Hyperemia is seen through the cutaneous soft tissue. Diffuse breast soft tissue edema noted. Multiple dilated intramammary ducts are seen. IMPRESSION: 1. Left breast cellulitis. Follow-up ultrasound recommended after medical therapy to ensure resolution as inflammatory type breast cancer can present similarly. 2. Subareolar minimally complex cyst. BI-RADS 3. Probably benign. Electronically signed by: Brennen Dacosta DO (01/20/2018 10:51 PM) [facility]
[2018-01-20] MEDS ORDERED: SULF1TAB24 PO (23:05)
[2018-01-20] MEDS ORDERED: HYDR-3164 PO (23:08)
== END 2018-01-20 23:29 | disposition home or self-care (01) ==
LOC: ER 20:41
DX: S20.112A Abrasion of breast, left breast, initial encounter (principal); N61.0 Mastitis without abscess; X58.XXXA Exposure to other specified factors, initial encounter; Y93.89 Activity, other specified; Y92.89 Other specified places as the place of occurrence of the external cause; Y99.8 Other external cause status
CPT/HCPCS: 76641; 99284

== ENCOUNTER 2018-03-30 10:45 | Emergency (ER) | payer SELFPAY ==
[~2018-03-30] VITALS: Ht 167.6 cm; Wt 90.7 kg
[~2018-03-30 10:45] MED LIST changes: +ALBU2.5V8 IH; +ALBU2.5V8 INH; +HYDR-3164 PO; -PROAIR HFA8.5 GM INH; -PROVENTIL HFA6.7 GM IH; +SULF1TAB24 PO
[2018-03-30 11:07] VITALS: BP 147/87
[2018-03-30] MEDS ORDERED: predniSONE 20 MG TABLET PO ONE (11:45)
[2018-03-30] MEDS ORDERED: IPRATRPIUM/ALBUTEROL 0.5/2.5MG 3 ML NEBU. NEB ONE (11:45)
--- NOTE | 2018-03-30 12:13 | RAD ---
EXAM: Chest, 2 views. HISTORY: Shortness of air. COMPARISON: 02/21/2017 FINDINGS: 2 views of the chest are obtained. There is slight increased parahilar interstitial opacity. There is no consolidation, pleural effusion or pneumothorax. The heart is normal in size. IMPRESSION: Slight increased bilateral perihilar interstitial opacity. This may be due to small airways disease or viral pneumonia. No consolidated infiltrate is seen. Electronically signed by: Claritza Mazariegos MD (03/30/2018 12:10 PM) [facility]
[2018-03-30] MEDS ORDERED: BENZ100C PO (12:30)
[2018-03-30] MEDS ORDERED: VENTOLIN HFA18 GM INH (12:30)
[2018-03-30] MEDS ORDERED: PRED50TA PO (12:30)
--- NOTE | 2018-03-30 12:30 | PHYS DOC ---
Past Medical History Past Medical History: No Pertinent History Past Surgical History: No Surgical History Alcohol Use: None Drug Use: None Adult General Chief Complaint Chief Complaint: SHORTNESS OF BREATH HPI HPI Patient is a 23 year old female with no significant medical history who presents to the ED today complaining of cough and shortness of breath that began yesterday. Patient denies any fever. Denies any previous history of asthma. Denies any nasal congestion. Patient does not know if she has any history of asthma. She is Chukese speaking and interpretation is provided by family Review of Systems Review of Systems Constitutional: Denies fever or chills [] Eyes: Denies change in visual acuity, redness, or eye pain [] HENT: Denies nasal congestion or sore throat [] Respiratory: Reports cough and shortness of breath Cardiovascular: No additional information not addressed in HPI [] GI: Denies abdominal pain, nausea, vomiting, bloody stools or diarrhea [] : Denies dysuria or hematuria [] Musculoskeletal: Denies back pain or joint pain [] Integument: Denies rash or skin lesions [] Neurologic: Denies headache, focal weakness or sensory changes [] All other systems were reviewed and found to be within normal limits, except as documented in this note. Current Medications Current Medications Current Medications Medications (Trade) Dose Ordered Sig/Michael Start Time Stop Time Status Last Admin Dose Admin Albuterol/ Ipratropium (Duoneb) 3 ml 1X ONCE 03/30/18 11:45 03/30/18 11:46 DC 03/30/18 11:51 3 ML Prednisone (Prednisone) 60 mg 1X ONCE 03/30/18 11:45 03/30/18 11:46 DC 03/30/18 11:45 60 MG Allergies Allergies Allergies Coded Allergies Type Severity Reaction Last Updated Verified No Known Drug Allergies 09/14/16 No Physical Exam Physical Exam Constitutional: Well developed, well nourished, no acute distress, non-toxic appearance. [] HENT: Normocephalic, atraumatic, bilateral external ears normal, oropharynx moist, no oral exudates, nose normal. [] Eyes: PERRLA, EOMI, conjunctiva normal, no discharge. [] Neck: Normal range of motion, no tenderness, supple, no stridor. [] Cardiovascular:Heart rate regular rhythm, no murmur [] Lungs & Thorax: Wheezing to bilateral upper anterior and posterior lung bases Abdomen: Bowel sounds normal, soft, no tenderness, no masses, no pulsatile masses. [] Skin: Warm, dry, no erythema, no rash. [] Back: No tenderness, no CVA tenderness. [] Extremities: No tenderness, no cyanosis, no clubbing, ROM intact, no edema. [] Neurologic: Alert and oriented X 3, normal motor function, normal sensory function, no focal deficits noted. [] Psychologic: Affect normal, judgement normal, mood normal. [] Current Patient Data Vital Signs Vital Signs Date Time Temp Pulse Resp B/P (MAP) Pulse Ox O2 Delivery O2 Flow Rate FiO2 03/30/18 11:52 96 Room Air 03/30/18 11:07 98.1 103 28 147/87 (107) 98.1 EKG EKG [] Radiology/Procedures Radiology/Procedures []PROCEDURE: CHEST PA & LATERAL EXAM: Chest, 2 views. HISTORY: Shortness of air. COMPARISON: 02/21/2017 FINDINGS: 2 views of the chest are obtained. There is slight increased parahilar interstitial opacity. There is no consolidation, pleural effusion or pneumothorax. The heart is normal in size. IMPRESSION: Slight increased bilateral perihilar interstitial opacity. This may be due to small airways disease or viral pneumonia. No consolidated infiltrate is seen. Electronically signed by: Claritza Mazariegos MD (03/30/2018 12:10 PM) [facility] DICTATED and SIGNED BY: CLARITZA MAZARIEGOS MD DATE: 03/30/18 1209 Course & Med Decision Making Course & Med Decision Making Pertinent Labs and Imaging studies reviewed. (See chart for details) This is a 23-year-old female patient presenting to the ED today complaining of cough or shortness of breath since yesterday. Patient was given a DuoNeb treatment and prednisone on arrival to the ER. Lungs have cleared up, patient feels better. Chest x-ray interpreted by radiologist slight increased bilateral perihilar interstitial opacity. This may be due to small airways disease or viral pneumonia. No consolidated infiltrate is seen. Patient was discharged with albuterol inhaler, prednisone for 4 more days, Tessalon Perles for her cough. Instructed to follow-up with her own doctor in the next 7 days. Provided return precautions and discharged in stable condition. Dragon Disclaimer Dragon Disclaimer This electronic medical record was generated, in whole or in part, using a voice recognition dictation system. Departure Departure Impression: Primary Impression: Asthma Disposition: 01 HOME, SELF-CARE Condition: STABLE Referrals: NO PCP (PCP) follow up with your doctor in 1 week Patient Instructions: Asthma, Adult, [id number] Additional Instructions: You were evaluated in the emergency room and noted to have asthma symptoms. Take the medication prescribes as ordered . Follow-up with your doctor in 1-2 weeks. Scripts Albuterol Sulfate (VENTOLIN HFA INHALER) 18 Gm Hfa.aer.ad 2 PUFF INH Q4HRS for FOR ASTHMA, #1 INHALER 0 Refills Prov: MIKEY HUERTA APRN 03/30/18 Benzonatate (TESSALON PERLE) 100 Mg Capsule 1 CAP PO TID, #30 CAP Prov: MIKEY HUERTA APRN 03/30/18 Prednisone (PREDNISONE) 50 Mg Tablet 1 TAB PO DAILY, #4 TAB Prov: MIKEY HUERTA APRN 03/30/18 Problem Qualifiers Primary Impression: Asthma Asthma severity: mild Asthma persistence: intermittent Asthma complication type: unspecified Qualified Codes: J45.20 - Mild intermittent asthma, uncomplicated MIKEY HUERTA APRN Mar 30, 2018 12:30
== END 2018-03-30 12:41 | disposition home or self-care (01) ==
LOC: ER 10:45
DX: J45.20 Mild intermittent asthma, uncomplicated (principal)
CPT/HCPCS: 71046; 94640; 99283; J7512; J7620

== ENCOUNTER 2018-06-01 00:25 | Emergency (ER) | payer SELFPAY ==
[~2018-06-01 00:25] MED LIST changes: +BENZ100C PO; +VENTOLIN HFA18 GM INH
[2018-06-01] MEDS ORDERED: AZIT250T PO (02:25)
--- NOTE | 2018-06-01 02:26 | PHYS DOC ---
Past Medical History Past Medical History: No Pertinent History Past Surgical History: No Surgical History Alcohol Use: None Drug Use: None Adult General Chief Complaint Chief Complaint: Congestion HPI HPI Patient is a 23-year-old female who presents with complaint of cough, congestion and shortness of breath with wheezing that started yesterday. Patient states that symptoms are improved right now. Patient has been coughing up some sputum but does not know the color of the sputum. Patient has not had a fever. She states that the shortness of breath has been worsened with exertion. Review of Systems Review of Systems Constitutional: Denies fever or chills [] HENT: Positive congestion[] Respiratory: Positive cough and shortness of breath [] Cardiovascular: No additional information not addressed in HPI [] Integument: Denies rash or skin lesions [] Current Medications Current Medications Current Medications Medications (Trade) Dose Ordered Sig/Michael Start Time Stop Time Status Last Admin Dose Admin Azithromycin (Zithromax) 500 mg 1X ONCE 06/01/18 02:30 06/01/18 02:31 UNV Allergies Allergies Allergies Coded Allergies Type Severity Reaction Last Updated Verified No Known Drug Allergies 09/14/16 No Physical Exam Physical Exam Constitutional: Well developed, well nourished, no acute distress, non-toxic appearance. [] HENT: Normocephalic, atraumatic, bilateral external ears normal, oropharynx moist, no oral exudates, nose normal. [] Cardiovascular:Heart rate regular rhythm, no murmur [] Lungs & Thorax: Bilateral breath sounds clear to auscultation [] Extremities: No tenderness, no cyanosis, no clubbing, ROM intact, no edema. [] EKG EKG [] Radiology/Procedures Radiology/Procedures [] Course & Med Decision Making Course & Med Decision Making Pertinent Labs and Imaging studies reviewed. (See chart for details) [] Dragon Disclaimer Dragon Disclaimer This electronic medical record was generated, in whole or in part, using a voice recognition dictation system. Departure Departure Impression: Primary Impression: Upper respiratory infection Disposition: 01 HOME, SELF-CARE Condition: STABLE Referrals: NO PCP (PCP) Patient Instructions: Upper Respiratory Infection, Adult Scripts Azithromycin (ZITHROMAX) 250 Mg Tablet 1 PKG PO UD, #6 TAB Prov: MOHIT GRESHAM Jr. DO 06/01/18 Problem Qualifiers Primary Impression: Upper respiratory infection URI type: unspecified URI Qualified Codes: J06.9 - Acute upper respiratory infection, unspecified MOHIT GRESHAM Jr. DO Jun 01, 2018 02:26
[2018-06-01] MEDS ORDERED: AZITHROMYCIN 250 MG TABLET. PO ONE (03:00)
== END 2018-06-01 02:41 | disposition home or self-care (01) ==
LOC: ER 00:25
DX: J06.9 Acute upper respiratory infection, unspecified (principal)
CPT/HCPCS: 99283; Q0144

== ENCOUNTER 2018-06-15 08:47 | Emergency (ER) | payer SELFPAY ==
[~2018-06-15] VITALS: Ht 162.6 cm; Wt 100.7 kg
[~2018-06-15 08:47] MED LIST changes: +AZIT250T PO
[2018-06-15 09:02] VITALS: BP 138/82
[2018-06-15] MEDS ORDERED: ALBUTEROL SULFATE 2.5 MG/3 ML NEBU. NEB ONE (09:30)
[2018-06-15] MEDS ORDERED: PRED20TA PO (10:14)
[2018-06-15] MEDS ORDERED: ALBU2.5V8 INH (10:14)
[2018-06-15] MEDS ORDERED: CEPH-264 PO (10:14)
--- NOTE | 2018-06-15 10:15 | PHYS DOC ---
Past Medical History Past Medical History: No Pertinent History Past Surgical History: No Surgical History Alcohol Use: None Drug Use: None Adult General Chief Complaint Chief Complaint: FLU SYMPTOM HPI HPI Patient is a 23 year old F here with family who is translating who is having cough, wheezing, ear pain and sore throat. She denies fevers. Review of Systems Review of Systems Constitutional: Denies fever or chills HEENT: Reports congestion, ear pain and sore throat. Respiratory: Reports cough. Cardiovascular: Denies chest pain GI: Denies abdominal pain, nausea, vomiting, bloody stools or diarrhea : Denies dysuria or hematuria Musculoskeletal: Denies back pain or joint pain Integument: Denies rash or skin lesions Neurologic: Denies headache, focal weakness or sensory changes All other systems were reviewed and found to be within normal limits, except as documented in this note. Current Medications Current Medications Current Medications Medications (Trade) Dose Ordered Sig/Michael Start Time Stop Time Status Last Admin Dose Admin Albuterol Sulfate (Ventolin Neb Soln) 2.5 mg 1X ONCE 06/15/18 09:30 06/15/18 09:31 DC 06/15/18 09:26 2.5 MG Allergies Allergies Allergies Coded Allergies Type Severity Reaction Last Updated Verified No Known Drug Allergies 09/14/16 No Physical Exam Physical Exam Constitutional: Well developed, well nourished, no acute distress, non-toxic appearance. HENT: Normocephalic, atraumatic. Ears mildly erythematous B, oropharynx with post nasal drainage Eyes: PERRLA, EOMI, conjunctiva normal, no discharge. Neck: Normal range of motion, no tenderness, supple, no stridor. Cardiovascular:Heart rate regular rhythm, no murmur Lungs & Thorax: Bilateral breath sounds clear to auscultation. Hard cough noted. Abdomen: Bowel sounds normal, soft, no tenderness, no masses, no pulsatile masses. Skin: Warm, dry, no erythema, no rash. Back: No tenderness, no CVA tenderness. Extremities: No tenderness, no cyanosis, no clubbing, ROM intact, no edema. Neurologic: Alert and oriented X 3, normal motor function, normal sensory function, no focal deficits noted. Psychologic: Affect normal, judgement normal, mood normal. Current Patient Data Vital Signs Vital Signs Date Time Temp Pulse Resp B/P (MAP) Pulse Ox O2 Delivery O2 Flow Rate FiO2 4/30/19 09:27 97 Room Air 06/15/18 09:02 97.7 78 20 138/82 (100) 97.7 EKG EKG [] Radiology/Procedures Radiology/Procedures [] Course & Med Decision Making Course & Med Decision Making Pertinent Labs and Imaging studies reviewed. (See chart for details) Pt with otitis media and bronchitis. Will prescribe keflex, albuterol and prednisone. Pt to rest and push fluids and f/u with PCP. Danyel Disclaimer Danyel Disclaimer This electronic medical record was generated, in whole or in part, using a voice recognition dictation system. Departure Departure Impression: Primary Impression: Acute bronchitis Additional Impressions: Otitis media Pharyngitis Disposition: HOME, SELF-CARE Condition: STABLE Referrals: NO PCP (PCP) Patient Instructions: Acute Bronchitis, Hfhn-[id number], Otitis Media, Adult, [id number] Scripts Albuterol Sulfate (PROAIR HFA INHALER) 8.5 Gm Hfa.aer.ad 1 PUFF INH PRN Q6HRS PRN for SHORTNESS OF BREATH, #1 INHALER 0 Refills Prov: SANDHYA ESTRADA 06/15/18 Prednisone (PREDNISONE) 20 Mg Tablet 1 TAB PO BID, #10 TAB Prov: SANDHAY ESTRADA 06/15/18 Cephalexin (KEFLEX) 500 Mg Capsule 1 CAP PO TID, #30 CAP Prov: SANDHYA ESTRADA 06/15/18 Problem Qualifiers SANDHYA ESTRADA Jun 15, 2018 10:14
== END 2018-06-15 10:24 | disposition home or self-care (01) ==
LOC: ER 08:47
DX: J20.9 Acute bronchitis, unspecified (principal); J02.9 Acute pharyngitis, unspecified; H66.93 Otitis media, unspecified, bilateral
CPT/HCPCS: 94640; 99283; J7613

== ENCOUNTER 2018-07-30 11:15 | Emergency (ER) | payer SELFPAY ==
[~2018-07-30] VITALS: Ht 165.1 cm; Wt 100.7 kg
[~2018-07-30 11:15] MED LIST changes: +CEPH-264 PO
[2018-07-30 12:07] LABS: BILIRUBIN,URINE NEGATIVE (NEG); CLARITY,URINE CLEAR; COLOR,URINE YELLOW; NITRITE,URINE NEGATIVE (NEG); PROTEIN,URINE NEGATIVE (NEG-TRACE)
[2018-07-30 12:12] LABS: U PREG PATIENT NEGATIVE (NEG)
[2018-07-30] MEDS ORDERED: IBUPROFEN 400 MG TABLET. PO ONE (12:15)
[2018-07-30 12:18] LABS: SQUAMOUS EPITHELIAL CELL,UR MANY /LPF; WBC,URINE OCC /HPF (0-4)
[2018-07-30 12:19] LABS: BACTERIA,URINE MODERATE /HPF (0-FEW)
[2018-07-30] MEDS ORDERED: IBUP-1060 PO (12:26)
[2018-07-30] MEDS ORDERED: PENI500T PO (12:26)
--- NOTE | 2018-07-30 12:26 | PHYS DOC ---
Past Medical History Past Medical History: No Pertinent History Past Surgical History: No Surgical History Alcohol Use: None Drug Use: None Adult General Chief Complaint Chief Complaint: HEADACHE HPI HPI Patient is a 23 year old female who presents with complaining of headache. Patient does not talk Telugu and her translating for her. Patient complaining of sore throat, nasal congestion, headache and feeling hot and cold for the last 3 days and rated her pain 10 over 10. Patient denies sick contacts, , vomiting, neck pain. Patient denies taking any tmwl-wxe-khbxhiy or prescribed medication at home. Review of Systems Review of Systems Constitutional: Reports subjective fever and chills Eyes: Denies change in visual acuity, redness, or eye pain [] HENT: Reports nasal congestion and sore throat Respiratory: Denies cough or shortness of breath [] Cardiovascular: No additional information not addressed in HPI [] GI: Denies abdominal pain, nausea, vomiting, bloody stools or diarrhea [] : Denies dysuria or hematuria [] Musculoskeletal: Denies back pain or joint pain [] Integument: Denies rash or skin lesions [] Neurologic: Reports headache, denies focal weakness or sensory changes [] Endocrine: Denies polyuria or polydipsia [] All other systems were reviewed and found to be within normal limits, except as documented in this note. Current Medications Current Medications Current Medications Medications (Trade) Dose Ordered Sig/Michael Start Time Stop Time Status Last Admin Dose Admin Ibuprofen (Motrin) 800 mg 1X ONCE 07/30/18 12:15 07/30/18 12:16 DC 07/30/18 12:19 800 MG Allergies Allergies Allergies Coded Allergies Type Severity Reaction Last Updated Verified No Known Drug Allergies 09/14/16 No Physical Exam Physical Exam Constitutional: Well developed, well nourished, mild distress, non-toxic appearance. [] HENT: Normocephalic, atraumatic, bilateral external ears normal, oropharynx moist, pharyngeal erythema and tonsillar edema with exudates, nose normal. [] Eyes: PERRLA, EOMI, conjunctiva normal, no discharge. [] Neck: Normal range of motion, no tenderness, supple, no stridor, no meningeal sign. [] Cardiovascular:Heart rate regular rhythm, no murmur [] Lungs & Thorax: Bilateral breath sounds clear to auscultation [] Abdomen: Bowel sounds normal, soft, no tenderness, no masses, no pulsatile masses. [] Skin: Warm, dry, no erythema, no rash. [] Back: No tenderness, no CVA tenderness. [] Extremities: No tenderness, no cyanosis, no clubbing, ROM intact, no edema. [] Neurologic: Alert and oriented X 3, normal motor function, normal sensory func tion, no focal deficits noted. [] Psychologic: Affect normal, judgement normal, mood normal. [] Current Patient Data Vital Signs Vital Signs Date Time Temp Pulse Resp B/P (MAP) Pulse Ox O2 Delivery O2 Flow Rate FiO2 07/30/18 12:29 70 99 07/30/18 11:30 97.8 18 132/73 (92) Room Air 97.8 Lab Values Laboratory Tests Test 07/30/18 11:22 07/30/18 11:38 Urine Collection Type Unknown Urine Color Yellow Urine Clarity Clear Urine pH 6.0 Urine Specific Gilbert 1.015 Urine Protein Negative mg/dL (NEG-TRACE) Urine Glucose (UA) Negative mg/dL (NEG) Urine Ketones (Stick) Negative mg/dL (NEG) Urine Blood Large (NEG) Urine Nitrite Negative (NEG) Urine Bilirubin Negative (NEG) Urine Urobilinogen Dipstick 1.0 mg/dL (0.2 mg/dL) Urine Leukocyte Esterase Negative (NEG) Urine RBC 1-2 /HPF (0-2) Urine WBC Occ /HPF (0-4) Urine Squamous Epithelial Cells Many /LPF Urine Bacteria Moderate /HPF (0-FEW) Urine Mucus Marked /LPF Urine Test Negative (NEG) Group A Streptococcus Rapid Positive (NEGATIVE) EKG EKG [] Radiology/Procedures Radiology/Procedures [] Course & Med Decision Making Course & Med Decision Making Pertinent Labs reviewed. (See chart for details) Evaluation of patient in ER showed 23-year-old female patient with sore throat and headache and not feeling good with positive strep throat test. Patient treated with ibuprofen in ER and felt better and did not want to have Bicillin. Prescription for 10 days penicillin was given. Dragon Disclaimer Dragon Disclaimer This electronic medical record was generated, in whole or in part, using a voice recognition dictation system. Departure Departure Impression: Primary Impression: Acute staphylococcal pharyngitis Additional Impression: Headache Disposition: HOME, SELF-CARE (1224) Condition: STABLE Referrals: NO PCP (PCP) Patient Instructions: Strep Throat, Group A Streptococcus Additional Instructions: Drink plenty of liquids Follow-up with your primary care physician in 3-5 days Return to ER if not getting better Scripts Penicillin V Potassium (PENICILLIN V POTASSIUM) 500 Mg Tablet 2 TAB PO Q12HR, #40 TAB Prov: BOZENA ROGERS MD 07/30/18 Ibuprofen (IBUPROFEN) 800 Mg Tablet 800 MG PO PRN Q8HRS PRN for INFLAMMATION, #20 TAB Prov: BOZENA ROGERS MD 07/30/18 Problem Qualifiers Additional Impression: Headache Headache type: unspecified Headache chronicity pattern: unspecified pattern Intractability: not intractable Qualified Codes: R51 - Headache BOZENA ROGERS MD Jul 30, 2018 12:26
[2018-07-30 12:29] VITALS: BP 118/66
== END 2018-07-30 12:36 | disposition home or self-care (01) ==
LOC: ER 11:15
DX: J02.8 Acute pharyngitis due to other specified organisms (principal); B95.8 Unspecified staphylococcus as the cause of diseases classified elsewhere; R51 Headache
CPT/HCPCS: 81001; 81025; 87086; 87880; 99284

== ENCOUNTER 2018-12-14 19:46 | Emergency (ER) | payer SELFPAY ==
[~2018-12-14] VITALS: Ht 165.1 cm; Wt 97.5 kg
[2018-12-14 20:10] VITALS: BP 146/61
[2018-12-14] MEDS ORDERED: IPRATRPIUM/ALBUTEROL 0.5/2.5MG 3 ML NEBU. NEB ONE (20:30)
[2018-12-14] MEDS ORDERED: CETI10TA16 PO (21:32)
[2018-12-14] MEDS ORDERED: BENZ100C PO (21:32)
[2018-12-14] MEDS ORDERED: VENTOLIN HFA18 GM INH (21:32)
--- NOTE | 2018-12-14 21:32 | PHYS DOC ---
Past Medical History Past Medical History: No Pertinent History Past Surgical History: No Surgical History Alcohol Use: None Drug Use: None Adult General Chief Complaint Chief Complaint: COUGH HPI HPI Patient is a 23 year old female that presents with cough, runny nose, congestion has been ongoing for 2 days. The patient states that she is not running fevers at home. The patient denies any pain. The patient denies that she is a smoker. Review of Systems Review of Systems Constitutional: Denies fever or chills [] Eyes: Denies change in visual acuity, redness, or eye pain [] HENT: Reports runny nose and congestion. Respiratory: Reports cough and shortness of breath [] Cardiovascular: No additional information not addressed in HPI [] GI: Denies abdominal pain, nausea, vomiting, bloody stools or diarrhea [] : Denies dysuria or hematuria [] Musculoskeletal: Denies back pain or joint pain [] Integument: Denies rash or skin lesions [] Neurologic: Denies headache, focal weakness or sensory changes [] Endocrine: Denies polyuria or polydipsia [] Complete systems were reviewed and found to be within normal limits, except as documented in this note. Current Medications Current Medications Current Medications Medications (Trade) Dose Ordered Sig/Michael Start Time Stop Time Status Last Admin Dose Admin Albuterol/ Ipratropium (Duoneb) 3 ml 1X ONCE 12/14/18 20:30 12/14/18 20:31 DC 12/14/18 20:33 3 ML Allergies Allergies Allergies Coded Allergies Type Severity Reaction Last Updated Verified No Known Drug Allergies 09/14/16 No Physical Exam Physical Exam Constitutional: Well developed, well nourished, no acute distress, non-toxic appearance. [] HENT: Normocephalic, atraumatic, bilateral external ears normal, oropharynx moist, no oral exudates, nose normal. [] Eyes: PERRLA, EOMI, conjunctiva normal, no discharge. [] Neck: Normal range of motion, no tenderness, supple, no stridor. [] Cardiovascular:Heart rate regular rhythm, no murmur [] Lungs & Thorax: Bilateral breath sounds with scattered wheezing. Abdomen: Bowel sounds normal, soft, no tenderness, no masses, no pulsatile masses. [] Skin: Warm, dry, no erythema, no rash. [] Back: No tenderness, no CVA tenderness. [] Extremities: No tenderness, no cyanosis, no clubbing, ROM intact, no edema. [] Neurologic: Alert and oriented X 3, normal motor function, normal sensory function, no focal deficits noted. [] Psychologic: Affect normal, judgement normal, mood normal. [] Current Patient Data Vital Signs Vital Signs Date Time Temp Pulse Resp B/P (MAP) Pulse Ox O2 Delivery O2 Flow Rate FiO2 12/14/18 20:10 98.6 104 17 146/61 (89) 98 Room Air 98.6 Lab Values Laboratory Tests Test 12/14/18 20:11 POC Urine HCG, Qualitative Hcg negative (Negative) EKG EKG [] Radiology/Procedures Radiology/Procedures [] Course & Med Decision Making Course & Med Decision Making Pertinent Labs and Imaging studies reviewed. (See chart for details) Will give breathing treatment, Decadron, and then will put on Zyrtec and Tessalon Perles. Appears to be having an upper respiratory infection that caused an Asthma exacerbation. Will d/c home. Discussed return precautions if she gets shortness of breath and unable to breath. Patient states she is feeling better after breathing treatment. Lungs are clear after treatment. Dragon Disclaimer Dragon Disclaimer This electronic medical record was generated, in whole or in part, using a voice recognition dictation system. Departure Departure Impression: Primary Impression: Upper respiratory infection, acute Additional Impression: Asthma exacerbation, mild Disposition: 01 HOME, SELF-CARE Condition: STABLE Referrals: NO PCP (PCP) Patient Instructions: Asthma Attacks, Prevention, Asthma, Adult Additional Instructions: Thank you for visiting [facility]. We appreciate you trusting us with your care. If any additional problems come up don't hesitate to return to visit us. Please follow up with your primary care provider so they can plan additional care if needed and know about the problem that you had. If symptoms worsen come back to the Emergency Department. Any concerning symptoms that start such as chest pain, shortness of air, weakness or numbness on one side of the body, running high fevers or any other concerning symptoms return to the ER. Please fill your medications at any pharmacy and follow the prescription instructions. Scripts Benzonatate (TESSALON PERLE) 100 Mg Capsule 1 CAP PO TID PRN for COUGH, #21 CAP Prov: ALEJANDRO ALLEN APRN 10/29/19 Cetirizine Hcl (CETIRIZINE HCL) 10 Mg Tablet 1 TAB PO DAILY, #30 TAB 0 Refills Prov: ALEJANDRO ALLEN APRN 12/14/18 Albuterol Sulfate (VENTOLIN HFA INHALER) 18 Gm Hfa.aer.ad 2 PUFF INH Q4HRS for FOR ASTHMA, #1 INHALER 0 Refills Prov: ALEJANDRO ALLEN APRN 12/14/18 Problem Qualifiers ALEJANDRO ALLEN APRN Dec 14, 2018 21:32
[2018-12-14] MEDS ORDERED: DEXAMETHASONE 4 MG TABLET PO ONE (22:00)
== END 2018-12-14 21:55 | disposition home or self-care (01) ==
LOC: ER 19:46
DX: J45.21 Mild intermittent asthma with (acute) exacerbation (principal)
CPT/HCPCS: 81025; 94640; 99283; J7620; J8540

== ENCOUNTER 2021-05-02 07:00 | Emergency (ER) | payer SELFPAY ==
[~2021-05-02] VITALS: Ht 167.6 cm; Wt 108.0 kg
[~2021-05-02 07:00] MED LIST changes: -ALBU2.5V8 IH; +CETI10TA16 PO; +PROVENTIL HFA6.7 GM IH
--- NOTE | 2021-05-02 07:28 | ED.ADGEN ---
Past Medical History Past Medical History: No Pertinent History Past Surgical History: No Surgical History Smoking Status: Never Smoker Alcohol Use: None Drug Use: None General Adult EDM: Chief Complaint: COUGH HPI: HPI: Patient is a 26 year old female coming in for cough, shortness of breath, and wheezing since last night. Patient states she has a history of asthma does not take daily medications. Last asthma exacerbation about 1 year ago. Denies any fevers. Had one episode of emesis yesterday. No diarrhea. Review of Systems: Review of Systems: All other systems within normal limits except for as noted in the HPI Current Medications: Current Medications Medications (Trade) Dose Ordered Sig/Michael Start Time Stop Time Status Last Admin Dose Admin Albuterol/ Ipratropium (Duoneb) 3 ml 1X ONCE 05/02/21 07:30 05/02/21 07:31 DC Prednisone (Prednisone) 60 mg 1X ONCE 05/02/21 07:30 05/02/21 07:31 DC 05/02/21 08:08 60 MG Allergies: Allergies: Allergies Coded Allergies Type Severity Reaction Last Updated Verified No Known Drug Allergies 05/02/21 No Physical Exam: PE: Constitutional: Well developed, well nourished, no acute distress, non-toxic appearance. [] HENT: Normocephalic, atraumatic, bilateral external ears normal, nose normal. [] Eyes: PERRLA, conjunctiva normal, no discharge. [] Neck: No rigidity, supple, no stridor. [] Cardiovascular: Regular rate and rhythm, brisk cap refill [] Lungs & Thorax: Non labored symmetric respirations, no tachypnea or respiratory distress. Bilateral expiratory wheezes [] Abdomen: Soft, nondistended. Skin: Warm, dry, no erythema, no rash. [] Back: Unremarkable Extremities: No deformities, range of motion grossly intact, no lower extremity edema [] Neurologic: Alert and oriented X 3, no focal deficits noted. [] Psychologic: Affect normal, judgement normal, mood normal. [] Current Patient Data: Labs: Laboratory Tests Test 05/02/21 07:29 05/02/21 07:42 Urine Collection Type Unknown Urine Color Yellow Urine Clarity Hazy Urine pH 5.5 (<5.0-8.0) Urine Specific [place] 1.030 (1.000-1.030) Urine Protein 100 mg/dL (NEG-TRACE) Urine Glucose (UA) Negative mg/dL (NEG) Urine Ketones (Stick) Negative mg/dL (NEG) Urine Blood Moderate (NEG) Urine Nitrite Negative (NEG) Urine Bilirubin Negative (NEG) Urine Urobilinogen Dipstick 0.2 mg/dL (0.2 mg/dL) Urine Leukocyte Esterase Negative (NEG) Urine RBC 1-2 /HPF (0-2) Urine WBC Occ /HPF (0-4) Urine Squamous Epithelial Cells Many /LPF Urine Bacteria Many /HPF (0-FEW) Urine Mucus Mod /LPF Urine Test Negative (NEG) Influenza Type A Antigen Negative (NEGATIVE) Influenza Type B Antigen Negative (NEGATIVE) SARS-CoV-2 Antigen (Rapid) Negative (NEGATIVE) Vital Signs: Vital Signs Date Time Temp Pulse Resp B/P (MAP) Pulse Ox O2 Delivery O2 Flow Rate FiO2 05/02/21 07:09 97.1 104 17 133/80 (97) 97 Room Air 97.1 EKG: EKG: [] Heart Score: C/O Chest Pain: No Risk Factors: Risk Factors: DM, Current or recent (<one month) smoker, HTN, HLP, family history of CAD, obesity. Risk Scores: Score 0 - 3: 2.5% MACE over next 6 weeks - Discharge Home Score 4 - 6: 20.3% MACE over next 6 weeks - Admit for Clinical Observation Score 7 - 10: 72.7% MACE over next 6 weeks - Early Invasive Strategies Radiology/Procedures: Radiology/Procedures: [facility] [address] [place] [address] IMAGING REPORT Signed PATIENT: ELIZABETH CALL ACCOUNT: [id number] : 1995 LOCATION: ER AGE: 26 SEX: F EXAM STATUS: REG ER ORD. PHYSICIAN: LAMIN CORTES MD REASON: cough PROCEDURE: CHEST PA & LATERAL EXAM: Chest, 2 views. HISTORY: Cough. COMPARISON: 03/30/2018 FINDINGS: 2 views of the chest are obtained. There is slight increased opacification of the lower lungs likely due to asymmetric overlying soft tissues. There is no consolidation, pleural effusion or pneumothorax. The heart is normal in size. IMPRESSION: No acute pulmonary finding. Electronically signed by: Claritza Mazariegos MD (05/02/2021 8:29 AM) [id number] DICTATED and SIGNED BY: CLARITZA MAZARIEGOS MD DATE: 05/02/21826 [] Course & Med Decision Making: Course & Med Decision Making Pertinent Labs and Imaging studies reviewed. (See chart for details) [] Dragon Disclaimer: Dragon Disclaimer: This electronic medical record was generated, in whole or in part, using a voice recognition dictation system. Departure Departure Impression: Primary Impression: Asthma exacerbation, mild Disposition: HOME / SELF CARE / HOMELESS Condition: IMPROVED Referrals: NO PCP (PCP) Patient Instructions: Asthma Prevention-Brief Scripts Albuterol Sulfate (PROAIR HFA INHALER) 8.5 Gm Hfa.aer.ad 2 PUFF IH PRN Q4-6HRS PRN for wheezing for 21 Days, #1 INHALER 0 Refills Prov: LAMIN CORTES MD 05/02/21 Prednisone (PREDNISONE) 50 Mg Tablet 1 TAB PO DAILY for steroid for 4 Days, #4 TAB Prov: LAMIN CORTES MD 05/02/21 LAMIN CORTES MD May 02, 2021 07:27
[2021-05-02] MEDS ORDERED: predniSONE 20 MG TABLET PO ONE (07:30)
[2021-05-02] MEDS ORDERED: IPRATRPIUM/ALBUTEROL 0.5/2.5MG 3 ML NEBU. NEB ONE ×2 (07:30)
[2021-05-02 08:00] LABS: BILIRUBIN,URINE NEGATIVE (NEG); CLARITY,URINE HAZY; COLOR,URINE YELLOW; NITRITE,URINE NEGATIVE (NEG); PH,URINE 5.5 (<5.0-8.0); PROTEIN,URINE 100 mg/dL (NEG-TRACE); UROBILINOGEN,URINE 0.2 mg/dL (0.2 mg/dL)
[2021-05-02 08:04] LABS: BACTERIA,URINE MANY /HPF (0-FEW); WBC,URINE OCC /HPF (0-4)
[2021-05-02 08:05] LABS: U PREG PATIENT NEGATIVE (NEG)
[2021-05-02 08:10] LABS: INFLUENZA A PATIENT NEGATIVE (NEGATIVE); INFLUENZA B PATIENT NEGATIVE (NEGATIVE)
--- NOTE | 2021-05-02 08:32 | RAD ---
EXAM: Chest, 2 views. HISTORY: Cough. COMPARISON: 03/30/2018 FINDINGS: 2 views of the chest are obtained. There is slight increased opacification of the lower anastasia gs likely due to asymmetric overlying soft tissues. There is no consolidation, pleural effusion or pn eumothorax. The heart is normal in size. IMPRESSION: No acute pulmonary finding. Electronically signed by: Claritza Mazariegos MD (05/02/2021 8:29 AM) [id number]
[2021-05-02] MEDS ORDERED: PRED50TA PO (08:58)
[2021-05-02] MEDS ORDERED: ALBU2.5V8 IH (08:58)
[2021-05-02 09:17] VITALS: BP 127/67
== END 2021-05-02 09:18 | disposition home or self-care (01) ==
LOC: ER 07:00
DX: J45.901 Unspecified asthma with (acute) exacerbation (principal); Z20.822 Contact with and (suspected) exposure to COVID-19
CPT/HCPCS: 71046; 81001; 81025; 87086; 87428; 94640; 99284; C9803; J7512; U0003

== ENCOUNTER 2021-06-11 02:44 | Emergency (ER) | payer SELFPAY ==
[~2021-06-11] VITALS: Ht 165.1 cm; Wt 106.9 kg
[~2021-06-11 02:44] MED LIST changes: +ALBU2.5V8 IH
--- NOTE | 2021-06-11 03:40 | PHYS DOC ---
Past Medical History Past Medical History: No Pertinent History Past Surgical History: No Surgical History Smoking Status: Never Smoker Alcohol Use: None Drug Use: None General Adult EDM: Chief Complaint: SHORTNESS OF BREATH HPI: HPI: Patient is a 26 year old female presents with shortness of breath that started last night. Patient states that she has been having wheezing and dry cough but no sputum production. Patient has the similar episodes every few months. Patient was told that she has asthma but has not followed up does not have a primary care physician does not have an inhaler at home. Patient denies any fevers or chills. Review of Systems: Review of Systems: Constitutional: Denies fever or chills. [] Eyes: Denies change in visual acuity. [] HENT: Denies nasal congestion or sore throat. [] Respiratory: Dry cough and shortness of breath. Cardiovascular: Denies chest pain or edema. [] GI: Denies abdominal pain, nausea, vomiting, bloody stools or diarrhea. [] : Denies dysuria. [] Musculoskeletal: Denies back pain or joint pain. [] Integument: Denies rash. [] Neurologic: Denies headache, focal weakness or sensory changes. [] Endocrine: Denies polyuria or polydipsia. [] Lymphatic: Denies swollen glands. [] Psychiatric: Denies depression or anxiety. [] Heart Score: C/O Chest Pain: No Risk Factors: Risk Factors: DM, Current or recent (<one month) smoker, HTN, HLP, family history of CAD, obesity. Risk Scores: Score 0 - 3: 2.5% MACE over next 6 weeks - Discharge Home Score 4 - 6: 20.3% MACE over next 6 weeks - Admit for Clinical Observation Score 7 - 10: 72.7% MACE over next 6 weeks - Early Invasive Strategies Current Medications: Current Medications Medications (Trade) Dose Ordered Sig/Michael Start Time Stop Time Status Last Admin Dose Admin Albuterol/ Ipratropium (Duoneb) 3 ml 1X ONCE 06/11/21 04:00 06/11/21 04:01 Dexamethasone Sodium Phosphate (Decadron) 10 mg 1X ONCE 06/11/21 04:00 06/11/21 04:01 Allergies: Allergies: Allergies Coded Allergies Type Severity Reaction Last Updated Verified No Known Drug Allergies 05/02/21 No Physical Exam: PE: Constitutional: Well developed, well nourished, no acute distress, non-toxic appearance. [] HENT: Normocephalic, atraumatic, bilateral external ears normal, oropharynx moist, no oral exudates, nose normal. [] Eyes: PERRLA, EOMI, conjunctiva normal, no discharge. [] Neck: Normal range of motion, no tenderness, supple, no stridor. [] Cardiovascular:Heart rate regular rhythm, no murmur [] Lungs & Thorax: Shallow respirations diffuse wheezing heard throughout. Abdomen: Bowel sounds normal, soft, no tenderness, no masses, no pulsatile masses. [] Skin: Warm, dry, no erythema, no rash. [] Back: No tenderness, no CVA tenderness. [] Extremities: No tenderness, no cyanosis, no clubbing, ROM intact, no edema. [] Neurologic: Alert and oriented X 3, normal motor function, normal sensory function, no focal deficits noted. [] Psychologic: Affect normal, judgement normal, mood normal. [] Current Patient Data: Vital Signs: Vital Signs Date Time Temp Pulse Resp B/P (MAP) Pulse Ox O2 Delivery O2 Flow Rate FiO2 06/11/21 03:36 98.8 78 16 117/72 (87) 98 Room Air 98.8 EKG: EKG: [] Radiology/Procedures: Radiology/Procedures: []Study: XR CHEST 1V Indication: Shortness of breath. Comparison: 05/02/2021 Findings: Unchanged cardiomediastinal silhouette considering lower lung volumes from the comparison. Symmetric jacky. No confluent airspace infiltrate, pleural effusion or pneumothorax. Impression: No acute radiographic abnormality of the chest. Course & Med Decision Making: Course & Med Decision Making Pertinent Labs and Imaging studies reviewed. (See chart for details) [] Patient states that shortness of breath is improved. I asked the patient if the patient has ever filled a prescription for the albuterol and states that he has never filled the prescription due to cost. Patient states he has no intention of filling or following up. Patient comes to the ER for management of the patient's condition. I explained to the patient that her respiratory condition is chronic and if not managed correctly patient can end up with permanent disability or even . Danyel Disclaimer: Danyel Disclaimer: This electronic medical record was generated, in whole or in part, using a voice recognition dictation system. Departure Departure Impression: Primary Impression: Asthma exacerbation, mild Disposition: 01 HOME / SELF CARE / HOMELESS Condition: IMPROVED Referrals: NO PCP (PCP) EDENILSON TOURE MD Patient Instructions: Asthma, Acute Bronchospasm Additional Instructions: Please follow-up with a hand spring former in the outpatient setting for definitive treatment and maintenance of your chronic disease. Failure to do so will result in poor outcomes. KELLEY AGUILAR DO Jun 11, 2021 03:40
[2021-06-11] MEDS ORDERED: DEXAMETHASONE SOD PHOS 20 MG/5 ML VIAL. IV ONE (04:00)
[2021-06-11] MEDS ORDERED: IPRATRPIUM/ALBUTEROL 0.5/2.5MG 3 ML NEBU. NEB ONE ×3 (04:00→05:15)
--- NOTE | 2021-06-11 04:17 | RAD ---
Study: XR CHEST 1V Indication: Shortness of breath. Comparison: 05/02/2021 Findings: Unchanged cardiomediastinal silhouette considering lower lung volumes from the comparison. Symmetric jacky. No confluent airspace infiltrate, pleural effusion or pneumothorax. Impression: No acute radiographic abnormality of the chest. Electronically signed by: REAL ESPINOZA MD (06/11/2021 4:15 AM) [facility]
[2021-06-11 05:20] VITALS: BP 127/62
[2021-06-11] MEDS ORDERED: DEXAMETHASONE SOD PHOS 20 MG/5 ML VIAL. IM ONE (05:30)
== END 2021-06-11 05:54 | disposition home or self-care (01) ==
LOC: ER 02:44
DX: J45.901 Unspecified asthma with (acute) exacerbation (principal)
CPT/HCPCS: 71045; 94640; 96372; 99285; J1100